=== PATIENT | male | born 1990 | race Caucasian/White ===

== ENCOUNTER 2022-06-16 23:29 | Emergency (ER) | payer MEDICAID ==
[~2022-06-16] VITALS: Ht 182.9 cm; Wt 74.9 kg
[2022-06-16 23:53] VITALS: BP 113/57
== END 2022-06-16 23:53 | disposition left against medical advice (07) ==
LOC: ER 23:31
DX: M79.602 Pain in left arm (principal); Z53.21 Procedure and treatment not carried out due to patient leaving prior to being seen by health care provider

== ENCOUNTER 2022-08-23 03:25 | Emergency (ER) | payer MEDICAID ==
[~2022-08-23] VITALS: Ht 180.3 cm; Wt 76.4 kg
[~2022-08-23 03:25] MED LIST: IVER3TAB2 PO
[2022-08-23 03:38] VITALS: BP 136/98
== END 2022-08-23 05:19 | disposition left against medical advice (07) ==
LOC: ER 03:29
DX: L29.9 Pruritus, unspecified (principal); Z53.21 Procedure and treatment not carried out due to patient leaving prior to being seen by health care provider
CPT/HCPCS: 99281

== ENCOUNTER 2022-09-02 14:57 | Emergency (ER) | payer OTHER ==
[~2022-09-02] VITALS: Ht 180.3 cm; Wt 77.0 kg
[2022-09-02 15:02] VITALS: BP 156/98
[2022-09-02] MEDS ORDERED: CEPH-585 PO (16:35)
== END 2022-09-02 17:10 | disposition home or self-care (01) ==
LOC: ER 14:57
DX: B86 Scabies (principal); L03.113 Cellulitis of right upper limb; F15.10 Other stimulant abuse, uncomplicated; Z79.899 Other long term (current) drug therapy; Z59.00 Homelessness unspecified
CPT/HCPCS: 99283

== ENCOUNTER 2022-09-13 13:08 | Emergency (ER) | payer MEDICAID, OTHER ==
[~2022-09-13] VITALS: Ht 180.3 cm; Wt 81.7 kg
[~2022-09-13 13:08] MED LIST changes: +CEPH-585 PO
[2022-09-13 13:26] VITALS: BP 149/96
[2022-09-13] MEDS ORDERED: Permethrin Cream 60gm TP ONE (15:30)
[2022-09-13] MEDS ORDERED: HYDR-3686 PO ×3 (15:32→15:33)
[2022-09-13] MEDS ORDERED: PERM60CR4 TOP ×3 (15:32→15:33)
[2022-09-13] MEDS ORDERED: CEPH250T PO ×3 (15:32→15:33)
== END 2022-09-13 15:41 | disposition home or self-care (01) ==
LOC: ER 13:09
DX: B86 Scabies (principal); F15.20 Other stimulant dependence, uncomplicated; Z59.00 Homelessness unspecified
CPT/HCPCS: 99283

== ENCOUNTER 2022-09-23 00:20 | Emergency (ER) | payer MEDICAID ==
[~2022-09-23] VITALS: Ht 182.9 cm; Wt 75.6 kg
[~2022-09-23 00:20] MED LIST changes: +CEPH250T PO; +HYDR-3686 PO; +PERM60CR4 TOP
[2022-09-23 00:24] VITALS: BP 124/100
[2022-09-23] MEDS ORDERED: IVER3TAB2 PO (01:56)
== END 2022-09-23 02:15 | disposition home or self-care (01) ==
LOC: ER 00:20
DX: B86 Scabies (principal); F15.10 Other stimulant abuse, uncomplicated; Z88.8 Allergy status to other drugs, medicaments and biological substances; Z79.1 Long term (current) use of non-steroidal anti-inflammatories (NSAID); Z79.2 Long term (current) use of antibiotics
CPT/HCPCS: 99281

== ENCOUNTER 2024-03-31 02:48 | Emergency (ER) | payer MEDICAID ==
[~2024-03-31] VITALS: Ht 175.3 cm; Wt 76.8 kg
[~2024-03-31 02:48] MED LIST changes: -CEPH-585 PO; +DIPH25CA83 PO; +PERM60CR19 TOP
[2024-03-31 02:52] VITALS: BP 152/84; PULSE 113; RESP 18; TEMP 98.3; O2SAT 98
== END 2024-03-31 03:12 | disposition home or self-care (01) ==
LOC: ER 02:49
DX: F15.10 Other stimulant abuse, uncomplicated (principal); Z79.2 Long term (current) use of antibiotics; Z79.899 Other long term (current) drug therapy; Z59.00 Homelessness unspecified
CPT/HCPCS: 99281